=== PATIENT | male | born 1950 ===

== ENCOUNTER → 2018-05-18 | Outpatient (CLI) | payer MEDICARE, OTHER ==
[~2018-05-18] MED LIST: ALBU90OI6 INH; ATOR10 PO; B12 5000 MCG; BUPR150ER PO; CHRO200 PO; CYAN1000 PO; Calcium 600 MG1 EACH; Chromium Pico400 MCG; DABI150C; ENZYMATIC DIGE1 EACH; ENZYMATIC DIGE1 EACH PO; ESCITALOPRAM OX10 MG PO; FURO20 PO; GINKGO60 MG PO; Galzin50 MG PO; INSDET100 SC; LEVO750 PO; LISI5 PO; MAGOXI400 PO; METF500C PO; METR500 PO; Multiple Vitam1 EAC1; OXYC10ER PO; Omega 3 Fish O1 EACH; PROBIOTIC ACID1 EACH PO; TOCO400 PO; VITAMIN D35000 UNIT; VITB2 PO; Vitamin C1000 M1 PO; WARF5 PO; WARF7.5 PO; ZINC220 PO; [UNRECOGNIZED DRUG - OTHER] PO; [UNRECOGNIZED DRUG - OTHER] TP
== END | disposition home or self-care (01) ==
LOC: PLD 11:01 → LAB SHORT 11:01
DX: D04.21 Carcinoma in situ of skin of right ear and external auricular canal (principal)
CPT/HCPCS: 88305

== ENCOUNTER 2019-08-01 06:40 | Day surgery (SDC) | payer MEDICARE, OTHER ==
[~2019-08-01] VITALS: Ht 180.3 cm; Wt 104.4 kg
[~2019-08-01 06:40] MED LIST changes: +LOSA50 PO; +XARELTO20 MG PO
== END 2019-08-01 09:07 | disposition home or self-care (01) ==
LOC: ORSCSDS 06:40
PROVIDERS: Surgery
PROC: 0DJD8ZZ Inspection of Lower Intestinal Tract, Via Natural or Artificial Opening Endoscopic (ICD-10-PCS; principal; 2019-08-01 08:00)
DX: Z12.11 Encounter for screening for malignant neoplasm of colon (principal); Z85.79 Personal history of other malignant neoplasms of lymphoid, hematopoietic and related tissues; E11.9 Type 2 diabetes mellitus without complications; Z87.891 Personal history of nicotine dependence; K50.10 Crohn's disease of large intestine without complications; J45.909 Unspecified asthma, uncomplicated; I10 Essential (primary) hypertension; E78.00 Pure hypercholesterolemia, unspecified; F32.9 Major depressive disorder, single episode, unspecified; E66.9 Obesity, unspecified; Z68.31 Body mass index [BMI] 31.0-31.9, adult; Z79.4 Long term (current) use of insulin; Z79.01 Long term (current) use of anticoagulants; Z79.899 Other long term (current) drug therapy
CPT/HCPCS: 82947; J0461; J2405; J2704; J7120

== ENCOUNTER → 2020-07-10 | Outpatient (CLI) | payer MEDICARE, OTHER | END | disposition home or self-care (01) | LOC: LAB SHORT 10:57 → LAB 10:57 | DX: D04.21 Carcinoma in situ of skin of right ear and external auricular canal (principal) | CPT/HCPCS: 88305 ==

== ENCOUNTER 2022-02-05 11:38 | Day surgery (SDC) | payer MEDICARE, OTHER ==
[~2022-02-05] VITALS: Ht 180.3 cm; Wt 99.1 kg
== END 2022-02-05 14:19 | disposition home or self-care (01) ==
LOC: ORSCSDS 11:38
PROVIDERS: Surgery
PROC: 0DJD8ZZ Inspection of Lower Intestinal Tract, Via Natural or Artificial Opening Endoscopic (ICD-10-PCS; principal; 2022-02-05 13:00)
DX: K62.5 Hemorrhage of anus and rectum (principal); Z85.79 Personal history of other malignant neoplasms of lymphoid, hematopoietic and related tissues; K64.8 Other hemorrhoids; F32.A Depression, unspecified; E11.9 Type 2 diabetes mellitus without complications; I10 Essential (primary) hypertension; E78.00 Pure hypercholesterolemia, unspecified; E66.9 Obesity, unspecified; Z68.30 Body mass index [BMI] 30.0-30.9, adult; Z87.891 Personal history of nicotine dependence; Z79.84 Long term (current) use of oral hypoglycemic drugs; Z79.899 Other long term (current) drug therapy
CPT/HCPCS: 82947; J2704; J7120

== ENCOUNTER 2024-01-19 12:03 | Day surgery (SDC) | payer OTHER ==
[~2024-01-19] VITALS: Ht 180.3 cm; Wt 94.8 kg
[~2024-01-19 12:03] MED LIST changes: +Balanced Salt Epinephrine Irrigation Solution 500 mL IR SCH; +Lidocaine HCl/Pf 1% 5 ML VIAL XX SCH; +Moxifloxacin HCL 0.5 MG/0.1 ML 0.4MLSYR RIGHTEYE SCH; +PHENYLEPHRINE\\TROPICAMIDE\\TETRACAINE OPHTHALMIC DILATING SOLN RIGHTEYE PRN; +Povidone-Iodine 450 DROP/30 ML Solution RIGHTEYE SCH
[2024-01-19] MEDS ORDERED: Midazolam HCl 1MG / ML 2ML Vial ONE (12:26)
[2024-01-19] MEDS ORDERED: STIOLTO RESPIMAT4 G1 IH (12:30)
[2024-01-19] MEDS ORDERED: SYNJARDY 12.5-1 EAC3 PO (12:32)
[2024-01-19] MEDS ORDERED: ROSUVASTATIN CAL5 MG PO (12:32)
[2024-01-19] MEDS ORDERED: OZEMPIC0.25 MG/02 (12:33)
[2024-01-19] MEDS ORDERED: PANT40 PO (12:34)
[2024-01-19] MEDS ORDERED: Tetracaine HCl 0.5% Opth Soln 15 ml XX ONE (13:04)
[2024-01-19 13:33] VITALS: BP 121/70
== END 2024-01-19 13:51 | disposition home or self-care (01) ==
LOC: ORSCSDS 12:03
PROVIDERS: Student in an Organized Health Care Education/Training Program
PROC: 08RJ3JZ Replacement of Right Lens with Synthetic Substitute, Percutaneous Approach (ICD-10-PCS; principal; 2024-01-19 13:30)
DX: E11.36 Type 2 diabetes mellitus with diabetic cataract (principal); H25.813 Combined forms of age-related cataract, bilateral; H52.201 Unspecified astigmatism, right eye; Z86.718 Personal history of other venous thrombosis and embolism; D68.9 Coagulation defect, unspecified; J44.9 Chronic obstructive pulmonary disease, unspecified; K21.9 Gastro-esophageal reflux disease without esophagitis; F32.A Depression, unspecified; E11.22 Type 2 diabetes mellitus with diabetic chronic kidney disease; I12.9 Hypertensive chronic kidney disease with stage 1 through stage 4 chronic kidney disease, or unspecified chronic kidney disease; N18.2 Chronic kidney disease, stage 2 (mild); Z87.891 Personal history of nicotine dependence; Z79.85 Long-term (current) use of injectable non-insulin antidiabetic drugs; Z79.899 Other long term (current) drug therapy
CPT/HCPCS: 82947; J2250; V2632

== ENCOUNTER 2024-02-01 07:02 | Day surgery (SDC) | payer OTHER ==
[~2024-02-01] VITALS: Ht 180.3 cm; Wt 95.7 kg
[~2024-02-01 07:02] MED LIST changes: +Lidocaine HCl/Pf 1% 5 ML VIAL ONE; +Moxifloxacin HCL 0.5 MG/0.1 ML 0.4MLSYR LEFTEYE SCH; -Moxifloxacin HCL 0.5 MG/0.1 ML 0.4MLSYR RIGHTEYE SCH; +OZEMPIC0.25 MG/02; +PANT40 PO; +PHENYLEPHRINE\\TROPICAMIDE\\TETRACAINE OPHTHALMIC DILATING SOLN LEFTEYE PRN; -PHENYLEPHRINE\\TROPICAMIDE\\TETRACAINE OPHTHALMIC DILATING SOLN RIGHTEYE PRN; +Povidone-Iodine 450 DROP/30 ML Solution LEFTEYE SCH; +Povidone-Iodine 450 DROP/30 ML Solution ONE; -Povidone-Iodine 450 DROP/30 ML Solution RIGHTEYE SCH; +ROSUVASTATIN CAL5 MG PO; +STIOLTO RESPIMAT4 G1 IH; +SYNJARDY 12.5-1 EAC3 PO; +Tetracaine HCl/Pf 0.5% Opth Soln 4 ml ONE
[2024-02-01] MEDS ORDERED: FentaNYL Citrate 50 MCG/ML 2 ML Injection ONE (08:10)
[2024-02-01] MEDS ORDERED: Midazolam HCl 1MG / ML 2ML Vial ONE (08:10)
[2024-02-01] MEDS ORDERED: Tetracaine HCl 0.5% Opth Soln 15 ml LEFTEYE ONE (08:14)
[2024-02-01 08:38] VITALS: BP 131/74
== END 2024-02-01 08:53 | disposition home or self-care (01) ==
LOC: ORSCSDS 07:02
PROVIDERS: Student in an Organized Health Care Education/Training Program
PROC: 08RK3JZ Replacement of Left Lens with Synthetic Substitute, Percutaneous Approach (ICD-10-PCS; principal; 2024-02-01 08:30)
DX: E11.36 Type 2 diabetes mellitus with diabetic cataract (principal); H25.812 Combined forms of age-related cataract, left eye; H52.202 Unspecified astigmatism, left eye; Z96.1 Presence of intraocular lens; E11.22 Type 2 diabetes mellitus with diabetic chronic kidney disease; I12.9 Hypertensive chronic kidney disease with stage 1 through stage 4 chronic kidney disease, or unspecified chronic kidney disease; N18.2 Chronic kidney disease, stage 2 (mild); Z85.72 Personal history of non-Hodgkin lymphomas; Z86.718 Personal history of other venous thrombosis and embolism; E78.00 Pure hypercholesterolemia, unspecified; F32.A Depression, unspecified; J45.909 Unspecified asthma, uncomplicated; J44.9 Chronic obstructive pulmonary disease, unspecified; G47.33 Obstructive sleep apnea (adult) (pediatric); I25.10 Atherosclerotic heart disease of native coronary artery without angina pectoris; N40.0 Benign prostatic hyperplasia without lower urinary tract symptoms; Z79.84 Long term (current) use of oral hypoglycemic drugs; Z79.85 Long-term (current) use of injectable non-insulin antidiabetic drugs; Z79.01 Long term (current) use of anticoagulants; Z79.899 Other long term (current) drug therapy; Z87.891 Personal history of nicotine dependence
CPT/HCPCS: 82947; J2003; J2250; J3010; V2632